=== PATIENT | male | born 1955 | race Hispanic/Latino ===

== ENCOUNTER 2023-01-08 11:48 | Inpatient (IN) | payer MEDICARE, OTHER ==
[2023-01-08] MEDS ORDERED: Dextrose 50% Abboject 50 ML SYRINGE ONE (11:54)
[2023-01-08] MEDS ORDERED: Insulin Regular 300 UNITS/3 ML VIAL ONE (11:54)
[2023-01-08] MEDS ORDERED: Sodium Bicarb 50 MEQ/50 ML Abboject 8.4% SYRINGE ONE (11:56)
[2023-01-08] MEDS ORDERED: Calcium Chloride 1 GM/10 ML Abboject SYRINGE ONE (11:56)
[2023-01-08 12:02] LABS: #Basophils 0.1 thou/uL (0.0-0.2); #Eosinphils 0.1 thou/uL (0.0-0.7); #Monocytes 0.3 thou/uL (0.11-0.59); #Neutrophils 8.8 thou/uL (1.40-6.50); %Basophils 0.4 % (0.0-1.0); %Eosinophils 0.9 % (0.0-10.0); %Lymphocytes 26.6 % (21.0-51.0); %Monocytes 2.3 % (0.0-10.0); %Neutrophils 65.4 % (42.0-75.0); Hematocrit 26.1 % (42.0-52.0); Hemoglobin 7.9 g/dL (14.0-18.0); Mean Corpuscular HGB CONC 30.3 g/dL (32.0-36.0); Mean Corpuscular Hemoglobin 28.6 pg (27.0-31.0); Mean Corpuscular Volume 94.6 fl (78.0-98.0); Mean Platelet Volume 10.7 fL (7.4-10.4); Platelet Count 277 10x3/uL (130-400); RBC Distribution Width 14.6 % (11.5-14.5); Red Blood Cell (RBC) Count 2.76 mill/uL (4.70-6.10); White Blood Cell (WBC) Count 13.4 10x3/uL (4.8-10.8)
[2023-01-08] MEDS ORDERED: fentaNYL 50 mcg/mL 1 mL Vial ONE (12:06)
[2023-01-08 12:20] LABS: Analyzer IN Cardio ER; Base Excess (BEa) -10.1 mEq/L (-2.0 to +3.0); CO2 Tension 30.2 mmHg (35.0-45.0); Calcium, Ionized (arterial) 1.23 mmol/L (1.12-1.30); Carboxyhemoglobin (COHb) 0.3 gm% (0.0-3.0); Hematocrit-ABG 23 % (42.0-52.0); Hemoglobin (Hb) 7.7 g/dL (14.0-18.0); O2 Tension (PaO2), arterial 462.7 mmHg (> 80.0); Potassium - ABG Lab 3.82 mmol/L (3.70-5.30); pH, Arterial 7.315 (7.35-7.45)
[2023-01-08 12:22] LABS: Puncture Site Yes
[2023-01-08] MEDS ORDERED: Fentanyl CADD 100 ML IV SCH (12:30)
[2023-01-08 12:34] LABS: Troponin I 0.024 ng/mL (< 0.028)
[2023-01-08 12:36] LABS: INR-International Normal Ratio 1.2; Prothrombin Time 15.8 sec (12.0-14.7)
[2023-01-08 12:37] LABS: PTT 34.5 sec (22.9-36.1)
[2023-01-08 12:40] LABS: Anion Gap 17 mmol/L (10-20); BUN (Urea Nitrogen) 48 mg/dL (8.4-25.7); Calc. Creatinine Clearance 0 mL/min (70-130); Carbon Dioxide 15 mmol/L (23-31); Chloride 113 mmol/L (98-107); Potassium 4.2 mmol/L (3.5-5.1); Sodium 141 mmol/L (136-145)
[2023-01-08 12:41] LABS: ALT (SGPT) 169 U/L (8-55); AST (SGOT) 198 U/L (5-34); Albumin 2.9 g/dL (3.4-4.8); Alkaline Phosphatase 80 U/L (40-110); Bilirubin, Total 0.3 mg/dL (0.2-1.2); Calcium 8.8 mg/dL (7.8-10.44); Estimated GFR 8; Globulin 3.5 g/dL (2.4-3.5); Glucose 162 mg/dL (80-115); Lipase 29 U/L (8-78); Protein, Total 6.4 g/dL (5.8-8.1)
[2023-01-08 12:46] LABS: Bacteria/HPF 1+ HPF (None Seen); Bilirubin Negative (Negative); Blood, Urine 2+ (Negative); CAUTI Indications for Culture Alt mental st,lethar; Clarity Hazy (Clear); Glucose, Urine (Dipstick) 150 mg/dL (Negative); Ketone, Urine Negative (Negative); Leukocyte Negative Leu/uL (Negative); Nitrite Negative (Negative); Protein, Urine (Dipstick) 300 mg/dL (Neg-Trace); Specific Gravity, Urine 1.012 (1.002-1.036); Squamous Epithelial 0-3 HPF (0-3); Urobilinogen Normal mg/dL (Less than 2); pH, Urine 6.5 (5.0-9.0)
[2023-01-08 12:47] LABS: Urine Culture Reflex No No
[2023-01-08 12:50] LABS: Amphetamine Not Detected (NotDetected); Barbiturates Screen Not Detected (NotDetected); Benzodiazepine Screen Not Detected (NotDetected); Cocaine Metabolite Screen Not Detected (NotDetected); Methadone Not Detected (NotDetected); Methamphetamine Not Detected (NotDetected); Opiate Screen Not Detected (NotDetected); Oxycodone Screen Not Detected (NotDetected); Phencyclidine (PCP) Not Detected (NotDetected); THC/Cannabinoid Screen Not Detected (NotDetected); Tricyclic Screen Not Detected (NotDetected)
[2023-01-08] MEDS ORDERED: Cefepime 2 GM VIAL ONE (13:16)
[2023-01-08 13:20] LABS: Acetaminophen Less than 10 mcg/mL (10.0-30.0); Alcohol Less than 10.0 mg/dL (Less than 10); Magnesium 2.2 mg/dL (1.6-2.6); Salicylate Less than 8.0 mg/dL (15.0-30.0)
[2023-01-08] MEDS ORDERED: Vancomycin 1 GM/200 ML (FROZEN) BAG ONE (13:36)
[2023-01-08 13:55] LABS: Digoxin Less than 0.15 ng/mL (0.8-2.0)
[2023-01-08] MEDS ORDERED: Senokot S 8.6-50 MG TAB PO PRN (15:20)
[2023-01-08] MEDS ORDERED: Ventilator Sedation Protocol 1 EACH FS SCH (15:20)
[2023-01-08] MEDS ORDERED: Ondansetron PF 4 MG/2 ML Vial IVP PRN (15:20)
[2023-01-08] MEDS ORDERED: Electrolyte Replacement Protocol 1 EACH IVPB ONE (15:20)
[2023-01-08] MEDS ORDERED: DISCONTINUE PREVIOUS NARCOTIC PAIN MEDICATIONS AND BENZODIAZEPINES FS SCH (15:30)
[2023-01-08] MEDS ORDERED: Fentanyl BOLUS 250 ML IVPB PRN (15:30)
[2023-01-08] MEDS ORDERED: Lorazepam 2 MG/ML VIAL SLOW IVP PRN (15:30)
[2023-01-08] MEDS ORDERED: Propofol BOLUS 1,000 MG/100 ML VIAL IV PRN (15:30)
[2023-01-08] MEDS ORDERED: Morphine 2 MG/ML VIAL SLOW IVP PRN (15:30)
[2023-01-08 16:12] LABS: #Monocytes 0.7 thou/uL (0.11-0.59); #Neutrophils 11.1 thou/uL (1.40-6.50); %Basophils 0.2 % (0.0-1.0); %Eosinophils 0.1 % (0.0-10.0); %Lymphocytes 5.1 % (21.0-51.0); %Monocytes 5.3 % (0.0-10.0); %Neutrophils 88.8 % (42.0-75.0); Hematocrit 21.5 % (42.0-52.0); Hemoglobin 6.6 g/dL (14.0-18.0); Mean Corpuscular HGB CONC 30.7 g/dL (32.0-36.0); Mean Corpuscular Hemoglobin 28.7 pg (27.0-31.0); Mean Corpuscular Volume 93.5 fl (78.0-98.0); Mean Platelet Volume 11.4 fL (7.4-10.4); Platelet Count 206 10x3/uL (130-400); RBC Distribution Width 14.6 % (11.5-14.5); White Blood Cell (WBC) Count 12.5 10x3/uL (4.8-10.8)
[2023-01-08] MEDS: Propofol 1,000 MG/100 ML VIAL IV PRN ×2 (16:35→21:06)
[2023-01-08 16:38] LABS: Albumin 2.6 g/dL (3.4-4.8); Anion Gap 13 mmol/L (10-20); BUN (Urea Nitrogen) 46 mg/dL (8.4-25.7); Calc. Creatinine Clearance 13 mL/min (70-130); Calcium 8.8 mg/dL (7.8-10.44); Carbon Dioxide 17 mmol/L (23-31); Chloride 115 mmol/L (98-107); Estimated GFR 9; Glucose 97 mg/dL (80-115); Phosphorus 5.2 mg/dL (2.3-4.7); Potassium 4.9 mmol/L (3.5-5.1); Sodium 140 mmol/L (136-145)
[2023-01-08 17:00] LABS: Troponin I 0.216 ng/mL (< 0.028)
[2023-01-08] MEDS: cefTRIAXone\\ROCEPHIN 2 GM in Sodium Chloride 0.9% 100 ML IVPB SCH (21:01)
[2023-01-08] MEDS: Famotidine/PF 20 mg/2ml Vial SLOW IVP SCH (21:06)
[2023-01-08] MEDS ORDERED: hydrALAZINE 20 MG/ML VIAL SLOW IVP SCH (22:45)
[2023-01-08 23:03] LABS: #Monocytes 0.5 thou/uL (0.11-0.59); #Neutrophils 11.1 thou/uL (1.40-6.50); %Basophils 0.2 % (0.0-1.0); %Eosinophils 0.1 % (0.0-10.0); %Monocytes 3.9 % (0.0-10.0); %Neutrophils 87.4 % (42.0-75.0); Hematocrit 24.6 % (42.0-52.0); Hemoglobin 7.9 g/dL (14.0-18.0); Mean Corpuscular HGB CONC 32.1 g/dL (32.0-36.0); Mean Corpuscular Hemoglobin 29.4 pg (27.0-31.0); Mean Corpuscular Volume 91.4 fl (78.0-98.0); Mean Platelet Volume 11.2 fL (7.4-10.4); Platelet Count 191 10x3/uL (130-400); RBC Distribution Width 14.6 % (11.5-14.5); Red Blood Cell (RBC) Count 2.69 mill/uL (4.70-6.10); White Blood Cell (WBC) Count 12.7 10x3/uL (4.8-10.8)
[2023-01-09 00:20] LABS: Troponin I 0.544 ng/mL (< 0.028)
[2023-01-09] MEDS: Propofol 1,000 MG/100 ML VIAL IV PRN (03:09)
[2023-01-09 04:01] LABS: #Eosinphils 0.1 thou/uL (0.0-0.7); #Monocytes 0.6 thou/uL (0.11-0.59); #Neutrophils 8.3 thou/uL (1.40-6.50); %Basophils 0.4 % (0.0-1.0); %Eosinophils 0.5 % (0.0-10.0); %Lymphocytes 16.4 % (21.0-51.0); %Monocytes 5.9 % (0.0-10.0); %Neutrophils 76.5 % (42.0-75.0); Hematocrit 23.6 % (42.0-52.0); Hemoglobin 7.8 g/dL (14.0-18.0); Mean Corpuscular HGB CONC 33.1 g/dL (32.0-36.0); Mean Corpuscular Hemoglobin 29.5 pg (27.0-31.0); Mean Corpuscular Volume 89.4 fl (78.0-98.0); Mean Platelet Volume 11.4 fL (7.4-10.4); Platelet Count 199 10x3/uL (130-400); RBC Distribution Width 14.6 % (11.5-14.5); Red Blood Cell (RBC) Count 2.64 mill/uL (4.70-6.10); White Blood Cell (WBC) Count 10.8 10x3/uL (4.8-10.8)
[2023-01-09 04:29] LABS: Albumin 2.4 g/dL (3.4-4.8); Anion Gap 14 mmol/L (10-20); BUN (Urea Nitrogen) 49 mg/dL (8.4-25.7); BUN/Creatinine Ratio 8.05; Calc. Creatinine Clearance 13 mL/min (70-130); Calcium 8.6 mg/dL (7.8-10.44); Carbon Dioxide 17 mmol/L (23-31); Chloride 116 mmol/L (98-107); Estimated GFR 9; Glucose 79 mg/dL (80-115); Iron 20 ug/dL (65-175); Phosphorus 4.4 mg/dL (2.3-4.7); Potassium 4.6 mmol/L (3.5-5.1); Sodium 142 mmol/L (136-145)
[2023-01-09 08:27] LABS: ALT (SGPT) 111 U/L (8-55); AST (SGOT) 104 U/L (5-34); Albumin 2.4 g/dL (3.4-4.8); Alkaline Phosphatase 64 U/L (40-110); Bilirubin, Direct 0.1 mg/dL (0.1-0.3); Bilirubin, Total 0.3 mg/dL (0.2-1.2); Protein, Total 5.3 g/dL (5.8-8.1)
[2023-01-09 08:48] LABS: INR-International Normal Ratio 1.2; Prothrombin Time 15.3 sec (12.0-14.7)
[2023-01-09 09:00] LABS: PTT 22.7 sec (22.9-36.1)
[2023-01-09 09:28] LABS: Creatinine, Urine 127.54 mg/dL (63-166)
[2023-01-09] MEDS ORDERED: Sodium Chloride 0.45% 1,000 ML IV SCH (09:30)
[2023-01-09] MEDS: Dexmedetomidine 400 MCG, Admixture Fee 1 EACH in Sodium Chloride 0.9% 96 ML IVPB SCH ×2 (10:07→22:13)
[2023-01-09] MEDS ORDERED: niCARdipine 25 MG in Sodium Chloride 0.9% 250 ML 250 ML IVPB SCH (11:45)
[2023-01-09] MEDS: Fentanyl CADD 100 ML IV SCH (11:52)
[2023-01-09] MEDS: cefTRIAXone\\ROCEPHIN 2 GM in Sodium Chloride 0.9% 100 ML IVPB SCH (21:50)
[2023-01-09] MEDS: Famotidine/PF 20 mg/2ml Vial SLOW IVP SCH (21:51)
[2023-01-09] MEDS: Heparin 5,000 UNITS/ML VIAL SC SCH (21:51)
[2023-01-10] MEDS: Fentanyl CADD 100 ML IV SCH (05:12)
[2023-01-10 07:01] LABS: #Monocytes 0.6 thou/uL (0.11-0.59); #Neutrophils 9.6 thou/uL (1.40-6.50); %Basophils 0.4 % (0.0-1.0); %Eosinophils 0.3 % (0.0-10.0); %Lymphocytes 6.7 % (21.0-51.0); %Monocytes 5.2 % (0.0-10.0); %Neutrophils 86.9 % (42.0-75.0); Hematocrit 27.4 % (42.0-52.0); Hemoglobin 8.7 g/dL (14.0-18.0); Mean Corpuscular HGB CONC 31.8 g/dL (32.0-36.0); Mean Corpuscular Hemoglobin 28.9 pg (27.0-31.0); Mean Platelet Volume 11.5 fL (7.4-10.4); Platelet Count 195 10x3/uL (130-400); RBC Distribution Width 14.8 % (11.5-14.5); Red Blood Cell (RBC) Count 3.01 mill/uL (4.70-6.10); White Blood Cell (WBC) Count 11.1 10x3/uL (4.8-10.8)
[2023-01-10 07:23] LABS: Anion Gap 18 mmol/L (10-20); BUN (Urea Nitrogen) 53 mg/dL (8.4-25.7); Calc. Creatinine Clearance 13 mL/min (70-130); Calcium 8.6 mg/dL (7.8-10.44); Carbon Dioxide 14 mmol/L (23-31); Chloride 115 mmol/L (98-107); Estimated GFR 9; Glucose 153 mg/dL (80-115); Potassium 4.8 mmol/L (3.5-5.1); Sodium 142 mmol/L (136-145)
[2023-01-10] MEDS: Heparin 5,000 UNITS/ML VIAL SC SCH ×2 (08:00→21:23)
[2023-01-10] MEDS: Dexmedetomidine 400 MCG, Admixture Fee 1 EACH in Sodium Chloride 0.9% 96 ML IVPB SCH (08:01)
[2023-01-10] MEDS ORDERED: Amlodipine 5 MG TAB PO SCH (14:00)
[2023-01-10] MEDS ORDERED: DC Sedation Protocol FS ONE (15:54)
[2023-01-10] MEDS: Famotidine/PF 20 mg/2ml Vial SLOW IVP SCH (21:10)
[2023-01-10] MEDS: cefTRIAXone\\ROCEPHIN 2 GM in Sodium Chloride 0.9% 100 ML IVPB SCH (21:10)
[2023-01-10] MEDS: Labetalol HCl 100 MG/20 ML VIAL SLOW IVP PRN (21:12)
[2023-01-10] MEDS: hydrALAZINE 20 MG/ML VIAL SLOW IVP PRN (22:08)
[2023-01-11] MEDS: Labetalol HCl 100 MG/20 ML VIAL SLOW IVP PRN (01:05)
[2023-01-11] MEDS ORDERED: Amlodipine 5 MG TAB PO SCH (09:00)
[2023-01-11] MEDS: Heparin 5,000 UNITS/ML VIAL SC SCH ×2 (09:07→21:16)
[2023-01-11 10:11] LABS: Anion Gap 17 mmol/L (10-20); BUN (Urea Nitrogen) 60 mg/dL (8.4-25.7); Calc. Creatinine Clearance 12 mL/min (70-130); Carbon Dioxide 16 mmol/L (23-31); Chloride 115 mmol/L (98-107); Potassium 4.6 mmol/L (3.5-5.1); Sodium 143 mmol/L (136-145)
[2023-01-11 10:12] LABS: Calcium 8.7 mg/dL (7.8-10.44); Estimated GFR 9; Glucose 130 mg/dL (80-115)
[2023-01-11] MEDS ORDERED: Metoprolol Tartrate 25 MG TAB PO SCH (12:28)
[2023-01-11] MEDS ORDERED: Dextrose 50% Abboject 50 ML SYRINGE SLOW IVP PRN (12:30)
[2023-01-11] MEDS ORDERED: HumaLOG 300 UNITS/3 ML VIAL SC PRN (12:30)
[2023-01-11] MEDS ORDERED: Dextrose 5% in Water 1,000 ML IV PRN (12:30)
[2023-01-11] MEDS: Acetaminophen 325 MG TAB PO PRN (15:32)
[2023-01-11] MEDS: hydrALAZINE 20 MG/ML VIAL SLOW IVP PRN (15:32)
[2023-01-11] MEDS ORDERED: NIFEdipine XL 60 MG ER.TAB PO SCH (15:45)
[2023-01-11 16:25] LABS: #Monocytes 0.9 thou/uL (0.11-0.59); #Neutrophils 11.7 thou/uL (1.40-6.50); %Basophils 0.2 % (0.0-1.0); %Eosinophils 0.1 % (0.0-10.0); %Lymphocytes 6.7 % (21.0-51.0); %Monocytes 6.7 % (0.0-10.0); %Neutrophils 85.6 % (42.0-75.0); Hematocrit 24.1 % (42.0-52.0); Hemoglobin 7.9 g/dL (14.0-18.0); Mean Corpuscular HGB CONC 32.8 g/dL (32.0-36.0); Mean Corpuscular Hemoglobin 29.4 pg (27.0-31.0); Mean Corpuscular Volume 89.6 fl (78.0-98.0); Mean Platelet Volume 11.6 fL (7.4-10.4); Platelet Count 229 10x3/uL (130-400); RBC Distribution Width 14.9 % (11.5-14.5); Red Blood Cell (RBC) Count 2.69 mill/uL (4.70-6.10); White Blood Cell (WBC) Count 13.7 10x3/uL (4.8-10.8)
[2023-01-11 16:48] LABS: ALT (SGPT) 54 U/L (8-55); AST (SGOT) 33 U/L (5-34); Albumin 2.7 g/dL (3.4-4.8); Alkaline Phosphatase 75 U/L (40-110); Anion Gap 18 mmol/L (10-20); BUN (Urea Nitrogen) 61 mg/dL (8.4-25.7); Bilirubin, Total 0.2 mg/dL (0.2-1.2); Calc. Creatinine Clearance 12 mL/min (70-130); Calcium 8.2 mg/dL (7.8-10.44); Carbon Dioxide 15 mmol/L (23-31); Chloride 114 mmol/L (98-107); Estimated GFR 9; Globulin 2.7 g/dL (2.4-3.5); Glucose 131 mg/dL (80-115); Magnesium 2.1 mg/dL (1.6-2.6); Potassium 4.5 mmol/L (3.5-5.1); Protein, Total 5.4 g/dL (5.8-8.1); Sodium 142 mmol/L (136-145)
[2023-01-11 16:51] LABS: Troponin I 0.163 ng/mL (< 0.028)
[2023-01-11] MEDS ORDERED: hydrALAZINE 20 MG/ML VIAL SLOW IVP PRN (16:56)
[2023-01-11] MEDS ORDERED: Aspirin 81 mg Enteric Coated Tablet PO SCH (17:00)
[2023-01-11 17:56] LABS: Lactic Acid 0.6 mmol/L (0.5-2.2)
[2023-01-11 20:56] LABS: Troponin I 0.169 ng/mL (< 0.028)
[2023-01-11] MEDS: cefTRIAXone\\ROCEPHIN 2 GM in Sodium Chloride 0.9% 100 ML IVPB SCH (21:15)
[2023-01-11] MEDS: Famotidine/PF 20 mg/2ml Vial SLOW IVP SCH (21:16)
[2023-01-11] MEDS: Metoprolol Tartrate 25 MG TAB PO SCH (22:52)
[2023-01-12 01:31] LABS: Troponin I 0.163 ng/mL (< 0.028)
[2023-01-12] MEDS: Labetalol HCl 100 MG/20 ML VIAL SLOW IVP PRN ×2 (04:35→23:38)
[2023-01-12 04:43] LABS: #Eosinphils 0.1 thou/uL (0.0-0.7); #Neutrophils 9.7 thou/uL (1.40-6.50); %Basophils 0.3 % (0.0-1.0); %Eosinophils 0.7 % (0.0-10.0); %Monocytes 8.1 % (0.0-10.0); Hematocrit 23.3 % (42.0-52.0); Hemoglobin 7.5 g/dL (14.0-18.0); Mean Corpuscular HGB CONC 32.2 g/dL (32.0-36.0); Mean Platelet Volume 11.9 fL (7.4-10.4); Platelet Count 237 10x3/uL (130-400); RBC Distribution Width 14.9 % (11.5-14.5); Red Blood Cell (RBC) Count 2.59 mill/uL (4.70-6.10); White Blood Cell (WBC) Count 11.9 10x3/uL (4.8-10.8)
[2023-01-12 04:51] LABS: Hemoglobin A1c 5.9 % (4.0-6.0)
[2023-01-12 05:09] LABS: Anion Gap 17 mmol/L (10-20); BUN (Urea Nitrogen) 63 mg/dL (8.4-25.7); Calc. Creatinine Clearance 12 mL/min (70-130); Calcium 8.6 mg/dL (7.8-10.44); Carbon Dioxide 16 mmol/L (23-31); Chloride 115 mmol/L (98-107); Cholesterol 155 mg/dl (< 200 Desired); Estimated GFR 8; Glucose 93 mg/dL (80-115); HDL Cholesterol 51 mg/dL (>60 Neg Risk); LDL Cholesterol, Calculated 86 mg/dL; Sodium 144 mmol/L (136-145); Triglycerides 91 mg/dL (Less than 150)
[2023-01-12] MEDS ORDERED: Iron, Sodium Ferric Gluconate 250 MG in Sodium Chloride 0.9% 250 ML 250 ML IVPB SCH (08:00)
[2023-01-12] MEDS: Atorvastatin Calcium 20 MG TAB PO SCH (08:53)
[2023-01-12] MEDS: Metoprolol Tartrate 25 MG TAB PO SCH (08:53)
[2023-01-12] MEDS: Aspirin 81 mg Enteric Coated Tablet PO SCH (08:54)
[2023-01-12] MEDS ORDERED: Lisinopril 5 MG TAB PO SCH (09:00)
[2023-01-12] MEDS ORDERED: NIFEdipine XL 30 MG ER.TAB PO SCH (09:00)
[2023-01-12] MEDS ORDERED: Insulin Glargine 30 UNITS/0.3 ML VIAL SC SCH ×3 (09:00)
[2023-01-12] MEDS ORDERED: Amlodipine 10 MG TAB PO SCH (09:00)
[2023-01-12] MEDS ORDERED: NIFEdipine XL 60 MG ER.TAB PO SCH (09:00)
[2023-01-12 10:01] LABS: ALT (SGPT) 46 U/L (8-55); AST (SGOT) 29 U/L (5-34); Albumin 2.7 g/dL (3.4-4.8); Alkaline Phosphatase 72 U/L (40-110); Bilirubin, Direct 0.1 mg/dL (0.1-0.3); Bilirubin, Total 0.3 mg/dL (0.2-1.2)
[2023-01-12] MEDS: NIFEdipine XL 60 MG ER.TAB PO SCH (10:51)
[2023-01-12] MEDS: Heparin 5,000 UNITS/ML VIAL SC SCH ×2 (11:26→21:44)
[2023-01-12] MEDS ORDERED: Lorazepam 2 MG/ML VIAL SLOW IVP SCH (15:30)
[2023-01-12] MEDS ORDERED: Epoetin (ESRD) 10,000 UNITS/ML VIAL SC SCH (18:00)
[2023-01-12] MEDS: Famotidine/PF 20 mg/2ml Vial SLOW IVP SCH (21:43)
[2023-01-12] MEDS: cefTRIAXone\\ROCEPHIN 2 GM in Sodium Chloride 0.9% 100 ML IVPB SCH (21:43)
[2023-01-13] MEDS: Metoprolol Tartrate 25 MG TAB PO SCH ×2 (01:09→12:09)
[2023-01-13] MEDS ORDERED: Dextrose 10% in Water 1,000 ML IV SCH (03:45)
[2023-01-13] MEDS ORDERED: Dextrose 5 %-0.45 % NaCl 1,000 ML IV SCH (03:45)
[2023-01-13] MEDS ORDERED: Lorazepam 2 MG/ML VIAL SLOW IVP SCH ×2 (03:45→12:00)
[2023-01-13 04:26] LABS: #Basophils 0.1 thou/uL (0.0-0.2); #Eosinphils 0.2 thou/uL (0.0-0.7); #Monocytes 1.3 thou/uL (0.11-0.59); #Neutrophils 10.5 thou/uL (1.40-6.50); %Basophils 0.5 % (0.0-1.0); %Eosinophils 1.4 % (0.0-10.0); %Lymphocytes 7.5 % (21.0-51.0); %Monocytes 9.9 % (0.0-10.0); Hematocrit 25.2 % (42.0-52.0); Mean Corpuscular HGB CONC 31.7 g/dL (32.0-36.0); Mean Corpuscular Hemoglobin 28.9 pg (27.0-31.0); Mean Platelet Volume 11.3 fL (7.4-10.4); Platelet Count 257 10x3/uL (130-400); RBC Distribution Width 14.9 % (11.5-14.5); Red Blood Cell (RBC) Count 2.77 mill/uL (4.70-6.10); White Blood Cell (WBC) Count 13.1 10x3/uL (4.8-10.8)
[2023-01-13 04:50] LABS: Anion Gap 17 mmol/L (10-20); BUN (Urea Nitrogen) 66 mg/dL (8.4-25.7); Calc. Creatinine Clearance 11 mL/min (70-130); Calcium 8.6 mg/dL (7.8-10.44); Carbon Dioxide 16 mmol/L (23-31); Chloride 115 mmol/L (98-107); Estimated GFR 8; Glucose 62 mg/dL (80-115); Magnesium 2.2 mg/dL (1.6-2.6); Potassium 3.9 mmol/L (3.5-5.1); Sodium 144 mmol/L (136-145)
[2023-01-13] MEDS ORDERED: Regadenoson 0.4 MG/5 ML SYRINGE ONE (08:46)
[2023-01-13] MEDS: Atorvastatin Calcium 20 MG TAB PO SCH (12:09)
[2023-01-13] MEDS: NIFEdipine XL 60 MG ER.TAB PO SCH (12:09)
[2023-01-13] MEDS: Aspirin 81 mg Enteric Coated Tablet PO SCH (12:09)
[2023-01-13] MEDS: Heparin 5,000 UNITS/ML VIAL SC SCH ×2 (12:14→21:44)
[2023-01-13] MEDS ORDERED: D5 1/2 NS 500 ML IV SCH (15:15)
[2023-01-13] MEDS: Dextrose 5 %-0.45 % NaCl 1,000 ML IV SCH (15:38)
[2023-01-14] MEDS ORDERED: Dextrose 10% in Water 1,000 ML IV SCH (01:30)
[2023-01-14] MEDS: Glucagon 1 MG/ML KIT IM PRN (01:47)
[2023-01-14] MEDS: cefTRIAXone\\ROCEPHIN 2 GM in Sodium Chloride 0.9% 100 ML IVPB SCH ×2 (04:56→22:18)
[2023-01-14] MEDS: Famotidine/PF 20 mg/2ml Vial SLOW IVP SCH ×2 (06:19→22:18)
[2023-01-14] MEDS: Metoprolol Tartrate 25 MG TAB PO SCH ×4 (06:20→22:23)
[2023-01-14 08:12] LABS: HBSAB Concentration Less than 8.00 mIU/mL; HBSAg Index 0.24 S/CO (0-0.99); Hep B Core Total Ab Non-Reactive (NonReactive); Hep B Surf AB Non-Reactive (NonReactive); Hep B Surf Ag Non-Reactive S/CO (NonReactive); Hep C IgG Ab Non-Reactive S/CO (NonReactive); Hep C Index 0.08 S/CO (0-0.79)
[2023-01-14 08:44] LABS: Anion Gap 16 mmol/L (10-20); BUN (Urea Nitrogen) 71 mg/dL (8.4-25.7); Calc. Creatinine Clearance 10 mL/min (70-130); Calcium 8.5 mg/dL (7.8-10.44); Carbon Dioxide 16 mmol/L (23-31); Chloride 111 mmol/L (98-107); Estimated GFR 8; Glucose 71 mg/dL (80-115); Potassium 4.3 mmol/L (3.5-5.1); Sodium 139 mmol/L (136-145)
[2023-01-14] MEDS: Atorvastatin Calcium 20 MG TAB PO SCH (08:58)
[2023-01-14] MEDS: Aspirin 81 mg Enteric Coated Tablet PO SCH (08:58)
[2023-01-14] MEDS: Heparin 5,000 UNITS/ML VIAL SC SCH ×2 (08:58→22:31)
[2023-01-14] MEDS: NIFEdipine XL 60 MG ER.TAB PO SCH (08:59)
[2023-01-14] MEDS: Dextrose 5 %-0.45 % NaCl 1,000 ML IV SCH (11:20)
[2023-01-15] MEDS ORDERED: Lorazepam 2 MG/ML VIAL SLOW IVP SCH (02:00)
[2023-01-15] MEDS: Aspirin 81 mg Enteric Coated Tablet PO SCH (09:52)
[2023-01-15] MEDS: NIFEdipine XL 60 MG ER.TAB PO SCH (09:52)
[2023-01-15] MEDS: Metoprolol Tartrate 25 MG TAB PO SCH ×2 (09:52→20:25)
[2023-01-15] MEDS: Atorvastatin Calcium 20 MG TAB PO SCH (09:52)
[2023-01-15] MEDS: Heparin 5,000 UNITS/ML VIAL SC SCH ×2 (10:04→20:23)
[2023-01-15] MEDS ORDERED: Dextrose 50% Abboject 50 ML SYRINGE ONE (11:38)
[2023-01-15] MEDS ORDERED: fentaNYL PF 100 MCG/2 ML SYRINGE ONE (12:45)
[2023-01-15] MEDS ORDERED: EPINEPHrine 1 MG/ML AMP ONE (12:48)
[2023-01-15] MEDS ORDERED: Bupivacaine PF 0.5% 30 ML VIAL ONE (12:48)
[2023-01-15] MEDS ORDERED: Heparin 10,000 UNITS/ 10 ML VIAL ONE (12:48)
[2023-01-15] MEDS ORDERED: Lidocaine 1% (PF) 30 ML VIAL ONE (12:48)
[2023-01-15] MEDS ORDERED: Ondansetron HCl/PF 4 MG/2 ML Vial IVP PRN (12:58)
[2023-01-15] MEDS ORDERED: PACU-Morphine 4MG/ML VIAL SLOW IVP PRN (12:58)
[2023-01-15] MEDS ORDERED: Promethazine HCl 25 MG/ML VIAL IM PRN (12:58)
[2023-01-15] MEDS ORDERED: PHENYLEPHRINE-NS 100 MCG/ML 10 ML SYRINGE ONE (13:22)
[2023-01-15] MEDS ORDERED: Ondansetron PF 4 MG/2 ML Vial ONE (13:22)
[2023-01-15] MEDS ORDERED: ePHEDrine Sulfate 50 MG/10 ML VIAL ONE (13:22)
[2023-01-15] MEDS: Dextrose 5 %-0.45 % NaCl 1,000 ML IV SCH (19:14)
[2023-01-15] MEDS: QUEtiapine 25 MG TAB PO SCH (20:25)
[2023-01-15] MEDS: Famotidine/PF 20 mg/2ml Vial SLOW IVP SCH (20:34)
[2023-01-16] MEDS ORDERED: Dextrose 5 %-0.45 % NaCl 1,000 ML IV SCH (02:00)
[2023-01-16 07:32] LABS: Bacteria/HPF None Seen HPF (None Seen); Bilirubin Negative (Negative); Blood, Urine 2+ (Negative); CAUTI Indications for Culture Alt mental st,lethar; Clarity Clear (Clear); Glucose, Urine (Dipstick) Normal (Negative); Ketone, Urine Negative (Negative); Leukocyte Negative Leu/uL (Negative); Nitrite Negative (Negative); Protein, Urine (Dipstick) 200 mg/dL (Neg-Trace); RBC/HPF 0-3 HPF (0-3); Specific Gravity, Urine 1.008 (1.002-1.036); Squamous Epithelial None Seen HPF (0-3); Urobilinogen Normal mg/dL (Less than 2); WBC/HPF 0-3 HPF (0-3)
[2023-01-16 07:34] LABS: Urine Culture Reflex No No
[2023-01-16] MEDS ORDERED: Heparin 10,000 UNITS/ 10 ML VIAL ONE (08:21)
[2023-01-16] MEDS: Glucagon 1 MG/ML KIT IM PRN (11:51)
[2023-01-16] MEDS: Heparin 5,000 UNITS/ML VIAL SC SCH ×2 (12:09→21:02)
[2023-01-16] MEDS: Atorvastatin Calcium 20 MG TAB PO SCH (12:09)
[2023-01-16] MEDS: Aspirin 81 mg Enteric Coated Tablet PO SCH (12:09)
[2023-01-16] MEDS: NIFEdipine XL 60 MG ER.TAB PO SCH (12:09)
[2023-01-16] MEDS: Metoprolol Tartrate 25 MG TAB PO SCH ×2 (12:09→21:02)
[2023-01-16] MEDS: QUEtiapine 25 MG TAB PO SCH ×2 (12:09→21:02)
[2023-01-16] MEDS: Dextrose 10% in Water 1,000 ML IV SCH (15:32)
[2023-01-17 04:50] LABS: #Eosinphils 0.3 thou/uL (0.0-0.7); #Monocytes 1.1 thou/uL (0.11-0.59); %Basophils 0.3 % (0.0-1.0); %Lymphocytes 13.2 % (21.0-51.0); %Monocytes 11.1 % (0.0-10.0); %Neutrophils 71.7 % (42.0-75.0); Hemoglobin 7.4 g/dL (14.0-18.0); Mean Corpuscular HGB CONC 32.2 g/dL (32.0-36.0); Mean Corpuscular Hemoglobin 29.2 pg (27.0-31.0); Mean Corpuscular Volume 90.9 fl (78.0-98.0); Platelet Count 349 10x3/uL (130-400); RBC Distribution Width 14.6 % (11.5-14.5); Red Blood Cell (RBC) Count 2.53 mill/uL (4.70-6.10); White Blood Cell (WBC) Count 9.7 10x3/uL (4.8-10.8)
[2023-01-17 05:13] LABS: Albumin 2.4 g/dL (3.4-4.8); Anion Gap 17 mmol/L (10-20); BUN (Urea Nitrogen) 28 mg/dL (8.4-25.7); BUN/Creatinine Ratio 6.29; Calc. Creatinine Clearance 17 mL/min (70-130); Calcium 8.1 mg/dL (7.8-10.44); Carbon Dioxide 22 mmol/L (23-31); Chloride 101 mmol/L (98-107); Estimated GFR 14; Glucose 90 mg/dL (80-115); Potassium 3.6 mmol/L (3.5-5.1); Sodium 136 mmol/L (136-145)
[2023-01-17] MEDS ORDERED: Epoetin (ESRD) 20,000 UNITS/ML MDV IVP SCH (09:30)
[2023-01-17] MEDS ORDERED: Heparin 10,000 UNITS/ 10 ML VIAL ONE (09:51)
[2023-01-17] MEDS: Metoprolol Tartrate 25 MG TAB PO SCH ×2 (13:34→21:32)
[2023-01-17] MEDS: Heparin 5,000 UNITS/ML VIAL SC SCH ×3 (13:34→21:32)
[2023-01-17] MEDS: NIFEdipine XL 60 MG ER.TAB PO SCH (13:34)
[2023-01-17] MEDS: Aspirin 81 mg Enteric Coated Tablet PO SCH (13:34)
[2023-01-17] MEDS: Atorvastatin Calcium 20 MG TAB PO SCH (13:34)
[2023-01-17] MEDS: QUEtiapine 25 MG TAB PO SCH ×2 (13:35→21:32)
[2023-01-17] MEDS: Dextrose 10% in Water 1,000 ML IV SCH (13:37)
[2023-01-17] MEDS: Epoetin (ESRD) 10,000 UNITS/ML VIAL IVP SCH (13:50)
[2023-01-17] MEDS: Famotidine/PF 20 mg/2ml Vial SLOW IVP SCH (21:33)
[2023-01-18 04:22] LABS: #Eosinphils 0.2 thou/uL (0.0-0.7); #Monocytes 1.2 thou/uL (0.11-0.59); #Neutrophils 7.4 thou/uL (1.40-6.50); %Basophils 0.4 % (0.0-1.0); %Eosinophils 2.1 % (0.0-10.0); %Lymphocytes 15.2 % (21.0-51.0); %Monocytes 11.7 % (0.0-10.0); %Neutrophils 69.7 % (42.0-75.0); Hematocrit 25.8 % (42.0-52.0); Hemoglobin 8.3 g/dL (14.0-18.0); Mean Corpuscular HGB CONC 32.2 g/dL (32.0-36.0); Mean Corpuscular Hemoglobin 29.2 pg (27.0-31.0); Mean Corpuscular Volume 90.8 fl (78.0-98.0); Mean Platelet Volume 10.5 fL (7.4-10.4); Platelet Count 410 10x3/uL (130-400); RBC Distribution Width 14.4 % (11.5-14.5); Red Blood Cell (RBC) Count 2.84 mill/uL (4.70-6.10); White Blood Cell (WBC) Count 10.6 10x3/uL (4.8-10.8)
[2023-01-18 04:53] LABS: Anion Gap 15 mmol/L (10-20); BUN (Urea Nitrogen) 12 mg/dL (8.4-25.7); Calc. Creatinine Clearance 22 mL/min (70-130); Calcium 8.2 mg/dL (7.8-10.44); Carbon Dioxide 24 mmol/L (23-31); Chloride 99 mmol/L (98-107); Estimated GFR 19; Glucose 139 mg/dL (80-115); Potassium 3.4 mmol/L (3.5-5.1); Sodium 135 mmol/L (136-145)
[2023-01-18] MEDS ORDERED: Metoprolol Tartrate 25 MG TAB PO SCH (08:05)
[2023-01-18] MEDS: Aspirin 81 mg Enteric Coated Tablet PO SCH (11:08)
[2023-01-18] MEDS: NIFEdipine XL 60 MG ER.TAB PO SCH (11:08)
[2023-01-18] MEDS: Metoprolol Tartrate 50 MG TAB PO SCH ×2 (11:09→20:41)
[2023-01-18] MEDS: Heparin 5,000 UNITS/ML VIAL SC SCH ×2 (11:10→20:41)
[2023-01-18] MEDS: Atorvastatin Calcium 20 MG TAB PO SCH (11:10)
[2023-01-18] MEDS: Dextrose 10% in Water 1,000 ML IV SCH (11:11)
[2023-01-18] MEDS: QUEtiapine 25 MG TAB PO SCH (13:44)
[2023-01-18] MEDS ORDERED: QUEtiapine 25 MG TAB PO SCH (21:00)
[2023-01-19] MEDS: Dextrose 10% in Water 1,000 ML IV SCH ×2 (02:22→22:37)
[2023-01-19 07:59] LABS: #Basophils 0.1 thou/uL (0.0-0.2); #Eosinphils 0.3 thou/uL (0.0-0.7); #Neutrophils 7.7 thou/uL (1.40-6.50); %Basophils 0.7 % (0.0-1.0); %Eosinophils 2.9 % (0.0-10.0); %Lymphocytes 13.6 % (21.0-51.0); %Monocytes 9.4 % (0.0-10.0); %Neutrophils 72.5 % (42.0-75.0); Hematocrit 25.7 % (42.0-52.0); Hemoglobin 8.2 g/dL (14.0-18.0); Mean Corpuscular HGB CONC 31.9 g/dL (32.0-36.0); Mean Corpuscular Volume 90.8 fl (78.0-98.0); Mean Platelet Volume 10.3 fL (7.4-10.4); Platelet Count 402 10x3/uL (130-400); RBC Distribution Width 14.3 % (11.5-14.5); Red Blood Cell (RBC) Count 2.83 mill/uL (4.70-6.10); White Blood Cell (WBC) Count 10.6 10x3/uL (4.8-10.8)
[2023-01-19 08:31] LABS: Anion Gap 16 mmol/L (10-20); BUN (Urea Nitrogen) 18 mg/dL (8.4-25.7); Calc. Creatinine Clearance 14 mL/min (70-130); Calcium 8.3 mg/dL (7.8-10.44); Carbon Dioxide 25 mmol/L (23-31); Chloride 97 mmol/L (98-107); Estimated GFR 11; Glucose 92 mg/dL (80-115); Potassium 3.7 mmol/L (3.5-5.1); Sodium 134 mmol/L (136-145)
[2023-01-19] MEDS: NIFEdipine XL 60 MG ER.TAB PO SCH (09:46)
[2023-01-19] MEDS: Aspirin 81 mg Enteric Coated Tablet PO SCH (09:46)
[2023-01-19] MEDS: Metoprolol Tartrate 50 MG TAB PO SCH ×2 (09:46→20:45)
[2023-01-19] MEDS: Potassium Chloride 20 MEQ TAB PO SCH (09:46)
[2023-01-19] MEDS: Heparin 5,000 UNITS/ML VIAL SC SCH ×2 (09:47→20:46)
[2023-01-19] MEDS: Atorvastatin Calcium 20 MG TAB PO SCH (09:47)
[2023-01-19] MEDS: QUEtiapine 25 MG TAB PO SCH (20:45)
[2023-01-19] MEDS: Famotidine/PF 20 mg/2ml Vial SLOW IVP SCH (20:45)
[2023-01-20 06:29] LABS: #Basophils 0.1 thou/uL (0.0-0.2); #Eosinphils 0.3 thou/uL (0.0-0.7); #Neutrophils 6.4 thou/uL (1.40-6.50); %Basophils 0.8 % (0.0-1.0); %Eosinophils 2.7 % (0.0-10.0); %Lymphocytes 16.7 % (21.0-51.0); %Monocytes 10.3 % (0.0-10.0); %Neutrophils 68.2 % (42.0-75.0); Hematocrit 25.2 % (42.0-52.0); Mean Corpuscular HGB CONC 31.7 g/dL (32.0-36.0); Mean Corpuscular Volume 91.3 fl (78.0-98.0); Mean Platelet Volume 10.4 fL (7.4-10.4); Platelet Count 413 10x3/uL (130-400); RBC Distribution Width 14.3 % (11.5-14.5); Red Blood Cell (RBC) Count 2.76 mill/uL (4.70-6.10); White Blood Cell (WBC) Count 9.3 10x3/uL (4.8-10.8)
[2023-01-20 07:03] LABS: Anion Gap 15 mmol/L (10-20); BUN (Urea Nitrogen) 25 mg/dL (8.4-25.7); Calc. Creatinine Clearance 10 mL/min (70-130); Calcium 8.2 mg/dL (7.8-10.44); Carbon Dioxide 24 mmol/L (23-31); Chloride 98 mmol/L (98-107); Estimated GFR 8; Glucose 89 mg/dL (80-115); Sodium 133 mmol/L (136-145)
[2023-01-20] MEDS: Heparin 5,000 UNITS/ML VIAL SC SCH ×2 (08:07→20:03)
[2023-01-20] MEDS: Potassium Chloride 20 MEQ TAB PO SCH (08:07)
[2023-01-20] MEDS: Aspirin 81 mg Enteric Coated Tablet PO SCH (08:07)
[2023-01-20] MEDS: Atorvastatin Calcium 20 MG TAB PO SCH (08:07)
[2023-01-20] MEDS: Metoprolol Tartrate 50 MG TAB PO SCH (08:08)
[2023-01-20] MEDS: NIFEdipine XL 60 MG ER.TAB PO SCH (08:08)
[2023-01-20] MEDS ORDERED: Heparin 10,000 UNITS/ 10 ML VIAL ONE (10:17)
[2023-01-20] MEDS: Epoetin (ESRD) 10,000 UNITS/ML VIAL IVP SCH (16:37)
[2023-01-21] MEDS: QUEtiapine 25 MG TAB PO SCH ×2 (01:04→20:31)
[2023-01-21] MEDS: Metoprolol Tartrate 50 MG TAB PO SCH ×3 (01:05→20:31)
[2023-01-21 07:19] LABS: #Basophils 0.1 thou/uL (0.0-0.2); #Eosinphils 0.2 thou/uL (0.0-0.7); #Monocytes 0.9 thou/uL (0.11-0.59); #Neutrophils 7.8 thou/uL (1.40-6.50); %Basophils 0.5 % (0.0-1.0); %Eosinophils 2.1 % (0.0-10.0); %Monocytes 8.6 % (0.0-10.0); %Neutrophils 73.5 % (42.0-75.0); Hematocrit 26.3 % (42.0-52.0); Hemoglobin 8.4 g/dL (14.0-18.0); Mean Corpuscular HGB CONC 31.9 g/dL (32.0-36.0); Mean Corpuscular Hemoglobin 29.1 pg (27.0-31.0); Mean Platelet Volume 10.1 fL (7.4-10.4); Platelet Count 451 10x3/uL (130-400); RBC Distribution Width 14.2 % (11.5-14.5); Red Blood Cell (RBC) Count 2.89 mill/uL (4.70-6.10); White Blood Cell (WBC) Count 10.6 10x3/uL (4.8-10.8)
[2023-01-21] MEDS: NIFEdipine XL 60 MG ER.TAB PO SCH (08:32)
[2023-01-21] MEDS: Heparin 5,000 UNITS/ML VIAL SC SCH ×2 (08:33→20:33)
[2023-01-21] MEDS: Atorvastatin Calcium 20 MG TAB PO SCH (08:33)
[2023-01-21] MEDS: Potassium Chloride 20 MEQ TAB PO SCH (08:33)
[2023-01-21] MEDS: Aspirin 81 mg Enteric Coated Tablet PO SCH (08:33)
[2023-01-21 09:52] LABS: BUN (Urea Nitrogen) 16 mg/dL (8.4-25.7); Calc. Creatinine Clearance 14 mL/min (70-130); Calcium 4.6 mg/dL (7.8-10.44); Carbon Dioxide 17 mmol/L (23-31); Chloride 98 mmol/L (98-107); Estimated GFR 12; Glucose 114 mg/dL (80-115); Potassium 5.4 mmol/L (3.5-5.1); Sodium 127 mmol/L (136-145)
[2023-01-21 09:55] LABS: Anion Gap 17 mmol/L (10-20)
[2023-01-21 10:43] LABS: Anion Gap 12 mmol/L (10-20); BUN (Urea Nitrogen) 17 mg/dL (8.4-25.7); Calc. Creatinine Clearance 14 mL/min (70-130); Carbon Dioxide 25 mmol/L (23-31); Chloride 95 mmol/L (98-107); Estimated GFR 12; Glucose 140 mg/dL (80-115); Potassium 4.5 mmol/L (3.5-5.1); Sodium 127 mmol/L (136-145)
[2023-01-21] MEDS: Famotidine/PF 20 mg/2ml Vial SLOW IVP SCH (20:34)
[2023-01-22 10:09] LABS: #Basophils 0.1 thou/uL (0.0-0.2); #Eosinphils 0.2 thou/uL (0.0-0.7); #Monocytes 0.9 thou/uL (0.11-0.59); #Neutrophils 8.3 thou/uL (1.40-6.50); %Basophils 0.6 % (0.0-1.0); %Eosinophils 1.6 % (0.0-10.0); %Lymphocytes 13.6 % (21.0-51.0); %Neutrophils 75.1 % (42.0-75.0); Hematocrit 25.1 % (42.0-52.0); Hemoglobin 7.9 g/dL (14.0-18.0); Mean Corpuscular HGB CONC 31.5 g/dL (32.0-36.0); Mean Corpuscular Hemoglobin 28.7 pg (27.0-31.0); Mean Corpuscular Volume 91.3 fl (78.0-98.0); Mean Platelet Volume 9.5 fL (7.4-10.4); Platelet Count 364 10x3/uL (130-400); RBC Distribution Width 14.5 % (11.5-14.5); Red Blood Cell (RBC) Count 2.75 mill/uL (4.70-6.10); White Blood Cell (WBC) Count 11.1 10x3/uL (4.8-10.8)
[2023-01-22 10:52] LABS: Anion Gap 12 mmol/L (10-20); BUN (Urea Nitrogen) 8 mg/dL (8.4-25.7); Calc. Creatinine Clearance 35 mL/min (70-130); Calcium 8.1 mg/dL (7.8-10.44); Carbon Dioxide 27 mmol/L (23-31); Chloride 98 mmol/L (98-107); Estimated GFR 37; Glucose 92 mg/dL (80-115); Potassium 3.1 mmol/L (3.5-5.1); Sodium 134 mmol/L (136-145)
[2023-01-22] MEDS ORDERED: Heparin 10,000 UNITS/ 10 ML VIAL ONE (10:58)
[2023-01-22] MEDS: Metoprolol Tartrate 50 MG TAB PO SCH ×2 (12:33→20:36)
[2023-01-22] MEDS: Heparin 5,000 UNITS/ML VIAL SC SCH ×2 (12:33→20:37)
[2023-01-22] MEDS: Atorvastatin Calcium 20 MG TAB PO SCH (13:12)
[2023-01-22] MEDS: NIFEdipine XL 60 MG ER.TAB PO SCH (13:12)
[2023-01-22] MEDS: Aspirin 81 mg Enteric Coated Tablet PO SCH (13:12)
[2023-01-22] MEDS: Epoetin (ESRD) 10,000 UNITS/ML VIAL IVP SCH (14:30)
[2023-01-22] MEDS ORDERED: traMADol HCl 50 MG TAB PO PRN (15:45)
[2023-01-22] MEDS ORDERED: guaiFENesin ER 600 MG TAB PO SCH (16:00)
[2023-01-22] MEDS: guaiFENesin ER 600 MG TAB PO SCH (20:36)
[2023-01-22] MEDS: QUEtiapine 25 MG TAB PO SCH (20:36)
[2023-01-23 07:20] LABS: #Basophils 0.1 thou/uL (0.0-0.2); #Eosinphils 0.2 thou/uL (0.0-0.7); #Monocytes 1.1 thou/uL (0.11-0.59); #Neutrophils 7.9 thou/uL (1.40-6.50); %Basophils 0.7 % (0.0-1.0); %Eosinophils 1.7 % (0.0-10.0); %Lymphocytes 18.8 % (21.0-51.0); %Monocytes 9.1 % (0.0-10.0); %Neutrophils 68.7 % (42.0-75.0); Hematocrit 24.8 % (42.0-52.0); Hemoglobin 7.8 g/dL (14.0-18.0); Mean Corpuscular HGB CONC 31.5 g/dL (32.0-36.0); Mean Corpuscular Volume 92.2 fl (78.0-98.0); Platelet Count 368 10x3/uL (130-400); RBC Distribution Width 14.4 % (11.5-14.5); Red Blood Cell (RBC) Count 2.69 mill/uL (4.70-6.10); White Blood Cell (WBC) Count 11.5 10x3/uL (4.8-10.8)
[2023-01-23 08:02] LABS: Anion Gap 13 mmol/L (10-20); BUN (Urea Nitrogen) 15 mg/dL (8.4-25.7); Calc. Creatinine Clearance 16 mL/min (70-130); Calcium 8.1 mg/dL (7.8-10.44); Carbon Dioxide 27 mmol/L (23-31); Chloride 96 mmol/L (98-107); Estimated GFR 14; Glucose 96 mg/dL (80-115); Potassium 4.2 mmol/L (3.5-5.1); Sodium 132 mmol/L (136-145)
[2023-01-23] MEDS: Aspirin 81 mg Enteric Coated Tablet PO SCH (09:12)
[2023-01-23] MEDS: Heparin 5,000 UNITS/ML VIAL SC SCH ×2 (09:12→21:05)
[2023-01-23] MEDS: Metoprolol Tartrate 50 MG TAB PO SCH ×2 (09:16→21:05)
[2023-01-23] MEDS: Atorvastatin Calcium 20 MG TAB PO SCH (09:17)
[2023-01-23] MEDS: Acetaminophen 325 MG TAB PO PRN ×2 (09:17→16:16)
[2023-01-23] MEDS: guaiFENesin ER 600 MG TAB PO SCH ×2 (09:17→21:05)
[2023-01-23] MEDS: NIFEdipine XL 60 MG ER.TAB PO SCH (09:17)
[2023-01-23] MEDS: QUEtiapine 25 MG TAB PO SCH (21:04)
[2023-01-23] MEDS: Famotidine 20 MG TAB PO SCH (21:05)
[2023-01-24 06:10] LABS: #Basophils 0.1 thou/uL (0.0-0.2); #Eosinphils 0.2 thou/uL (0.0-0.7); #Monocytes 1.2 thou/uL (0.11-0.59); %Basophils 0.7 % (0.0-1.0); %Eosinophils 1.6 % (0.0-10.0); %Lymphocytes 14.8 % (21.0-51.0); %Monocytes 9.8 % (0.0-10.0); %Neutrophils 72.5 % (42.0-75.0); Hematocrit 24.4 % (42.0-52.0); Hemoglobin 7.7 g/dL (14.0-18.0); Mean Corpuscular HGB CONC 31.6 g/dL (32.0-36.0); Mean Corpuscular Hemoglobin 29.2 pg (27.0-31.0); Mean Corpuscular Volume 92.4 fl (78.0-98.0); Platelet Count 368 10x3/uL (130-400); RBC Distribution Width 14.4 % (11.5-14.5); Red Blood Cell (RBC) Count 2.64 mill/uL (4.70-6.10); White Blood Cell (WBC) Count 12.4 10x3/uL (4.8-10.8)
[2023-01-24 06:36] LABS: Anion Gap 13 mmol/L (10-20); BUN (Urea Nitrogen) 25 mg/dL (8.4-25.7); Calc. Creatinine Clearance 12 mL/min (70-130); Calcium 8.4 mg/dL (7.8-10.44); Carbon Dioxide 28 mmol/L (23-31); Chloride 97 mmol/L (98-107); Estimated GFR 10; Glucose 154 mg/dL (80-115); Potassium 4.3 mmol/L (3.5-5.1); Sodium 134 mmol/L (136-145)
[2023-01-24] MEDS: Heparin 5,000 UNITS/ML VIAL SC SCH ×2 (12:38→20:01)
[2023-01-24] MEDS: guaiFENesin ER 600 MG TAB PO SCH ×2 (12:38→19:59)
[2023-01-24] MEDS: Metoprolol Tartrate 50 MG TAB PO SCH ×2 (12:38→19:59)
[2023-01-24] MEDS: Atorvastatin Calcium 20 MG TAB PO SCH (12:48)
[2023-01-24] MEDS: Aspirin 81 mg Enteric Coated Tablet PO SCH (12:49)
[2023-01-24] MEDS: EPOETIN ALFA-EPBX (ESRD) 10,000 UNITS/ML VIAL IVP SCH (12:49)
[2023-01-24] MEDS ORDERED: Heparin 10,000 UNITS/ 10 ML VIAL ONE (12:52)
[2023-01-24] MEDS: NIFEdipine XL 60 MG ER.TAB PO SCH (12:52)
[2023-01-24] MEDS ORDERED: Glucagon 1 MG/ML KIT IM PRN (17:07)
[2023-01-24] MEDS ORDERED: Dextrose 5% in Water 1,000 ML IV PRN (17:07)
[2023-01-24] MEDS ORDERED: Dextrose 50% Abboject 50 ML SYRINGE SLOW IVP PRN (17:07)
[2023-01-24] MEDS: HumaLOG 300 UNITS/3 ML VIAL SC PRN (17:18)
[2023-01-24] MEDS: QUEtiapine 25 MG TAB PO SCH (19:59)
[2023-01-24] MEDS: Acetaminophen 325 MG TAB PO PRN (20:00)
[2023-01-25] MEDS: Atorvastatin Calcium 20 MG TAB PO SCH (08:18)
[2023-01-25] MEDS: NIFEdipine XL 60 MG ER.TAB PO SCH (08:18)
[2023-01-25] MEDS: Aspirin 81 mg Enteric Coated Tablet PO SCH (08:18)
[2023-01-25] MEDS: guaiFENesin ER 600 MG TAB PO SCH ×2 (08:18→21:01)
[2023-01-25] MEDS: Heparin 5,000 UNITS/ML VIAL SC SCH ×2 (08:18→21:01)
[2023-01-25] MEDS: Metoprolol Tartrate 50 MG TAB PO SCH (08:18)
[2023-01-25] MEDS: Famotidine 20 MG TAB PO SCH (21:01)
[2023-01-25] MEDS: Metoprolol Tartrate 25 MG TAB PO SCH (21:01)
[2023-01-25] MEDS: QUEtiapine 25 MG TAB PO SCH (21:01)
[2023-01-26] MEDS: cloNIDine 0.1 MG TAB PO PRN ×2 (03:28→22:18)
[2023-01-26] MEDS: HumaLOG 300 UNITS/3 ML VIAL SC PRN (06:00)
[2023-01-26 07:15] LABS: Anion Gap 13 mmol/L (10-20); BUN (Urea Nitrogen) 36 mg/dL (8.4-25.7); Calc. Creatinine Clearance 11 mL/min (70-130); Calcium 8.6 mg/dL (7.8-10.44); Carbon Dioxide 26 mmol/L (23-31); Chloride 99 mmol/L (98-107); Estimated GFR 9; Glucose 223 mg/dL (80-115); Potassium 4.8 mmol/L (3.5-5.1); Sodium 133 mmol/L (136-145)
[2023-01-26] MEDS: Aspirin 81 mg Enteric Coated Tablet PO SCH (08:29)
[2023-01-26] MEDS: NIFEdipine XL 30 MG ER.TAB PO SCH (08:29)
[2023-01-26] MEDS: guaiFENesin ER 600 MG TAB PO SCH ×2 (08:29→22:18)
[2023-01-26] MEDS: Atorvastatin Calcium 20 MG TAB PO SCH (08:29)
[2023-01-26] MEDS: Heparin 5,000 UNITS/ML VIAL SC SCH ×2 (08:30→22:19)
[2023-01-26] MEDS: Metoprolol Tartrate 25 MG TAB PO SCH ×2 (08:30→22:18)
[2023-01-26] MEDS: QUEtiapine 25 MG TAB PO SCH (22:18)
[2023-01-27 05:27] LABS: #Basophils 0.1 thou/uL (0.0-0.2); #Eosinphils 0.2 thou/uL (0.0-0.7); #Neutrophils 6.6 thou/uL (1.40-6.50); %Basophils 1.1 % (0.0-1.0); %Eosinophils 2.3 % (0.0-10.0); %Lymphocytes 24.3 % (21.0-51.0); %Monocytes 9.2 % (0.0-10.0); %Neutrophils 62.4 % (42.0-75.0); Hematocrit 22.8 % (42.0-52.0); Hemoglobin 7.2 g/dL (14.0-18.0); Mean Corpuscular HGB CONC 31.6 g/dL (32.0-36.0); Mean Corpuscular Hemoglobin 29.8 pg (27.0-31.0); Mean Corpuscular Volume 94.2 fl (78.0-98.0); Mean Platelet Volume 10.2 fL (7.4-10.4); Platelet Count 370 10x3/uL (130-400); RBC Distribution Width 14.5 % (11.5-14.5); Red Blood Cell (RBC) Count 2.42 mill/uL (4.70-6.10); White Blood Cell (WBC) Count 10.6 10x3/uL (4.8-10.8)
[2023-01-27 05:46] LABS: Anion Gap 13 mmol/L (10-20); BUN (Urea Nitrogen) 47 mg/dL (8.4-25.7); Calc. Creatinine Clearance 10 mL/min (70-130); Calcium 8.5 mg/dL (7.8-10.44); Carbon Dioxide 24 mmol/L (23-31); Chloride 101 mmol/L (98-107); Estimated GFR 8; Glucose 158 mg/dL (80-115); Potassium 5.1 mmol/L (3.5-5.1); Sodium 133 mmol/L (136-145)
[2023-01-27] MEDS: Heparin 5,000 UNITS/ML VIAL SC SCH ×2 (07:42→20:29)
[2023-01-27] MEDS: guaiFENesin ER 600 MG TAB PO SCH ×2 (07:42→20:29)
[2023-01-27] MEDS: Metoprolol Tartrate 25 MG TAB PO SCH ×2 (07:42→20:28)
[2023-01-27] MEDS: Aspirin 81 mg Enteric Coated Tablet PO SCH (13:03)
[2023-01-27] MEDS: Atorvastatin Calcium 20 MG TAB PO SCH (13:03)
[2023-01-27] MEDS: NIFEdipine XL 30 MG ER.TAB PO SCH (13:03)
[2023-01-27] MEDS: Epoetin (ESRD) 10,000 UNITS/ML VIAL IVP SCH (13:24)
[2023-01-27] MEDS: EPOETIN ALFA-EPBX (ESRD) 10,000 UNITS/ML VIAL IVP SCH (13:34)
[2023-01-27] MEDS ORDERED: Epoetin (ESRD) 10,000 UNITS/ML VIAL SC SCH (13:45)
[2023-01-27] MEDS ORDERED: Heparin 10,000 UNITS/ 10 ML VIAL ONE (16:03)
[2023-01-27] MEDS: HumaLOG 300 UNITS/3 ML VIAL SC PRN (17:24)
[2023-01-27] MEDS: Famotidine 20 MG TAB PO SCH (20:28)
[2023-01-27] MEDS: QUEtiapine 25 MG TAB PO SCH (20:28)
[2023-01-28] MEDS: Metoprolol Tartrate 25 MG TAB PO SCH ×2 (08:17→19:54)
[2023-01-28] MEDS: NIFEdipine XL 30 MG ER.TAB PO SCH (08:17)
[2023-01-28] MEDS: guaiFENesin ER 600 MG TAB PO SCH ×2 (08:17→19:54)
[2023-01-28] MEDS: Heparin 5,000 UNITS/ML VIAL SC SCH ×2 (08:17→19:54)
[2023-01-28] MEDS: Atorvastatin Calcium 20 MG TAB PO SCH (08:17)
[2023-01-28] MEDS: Aspirin 81 mg Enteric Coated Tablet PO SCH (08:17)
[2023-01-28] MEDS: HumaLOG 300 UNITS/3 ML VIAL SC PRN (12:26)
[2023-01-28] MEDS: QUEtiapine 25 MG TAB PO SCH (19:54)
[2023-01-28] MEDS: Ferrous Sulfate 325 MG TAB PO SCH (21:26)
[2023-01-28] MEDS: cloNIDine 0.1 MG TAB PO PRN (21:27)
[2023-01-29 06:29] LABS: Hematocrit 24.4 % (42.0-52.0); Hemoglobin 7.6 g/dL (14.0-18.0)
[2023-01-29] MEDS ORDERED: Heparin 10,000 UNITS/ 10 ML VIAL ONE (08:33)
[2023-01-29] MEDS: Heparin 5,000 UNITS/ML VIAL SC SCH ×2 (09:00→19:45)
[2023-01-29] MEDS: guaiFENesin ER 600 MG TAB PO SCH ×2 (10:23→19:44)
[2023-01-29] MEDS ORDERED: IRON SUCROSE COMPLEX 100 MG/5 ML SLOW IVP SCH (11:45)
[2023-01-29] MEDS ORDERED: Iron, Sodium Ferric Gluconate 125 MG in Sodium Chloride 0.9% 100 ML IVPB SCH (12:00)
[2023-01-29 13:50] VITALS: BMI 22.2
[2023-01-29] MEDS: Ferrous Sulfate 325 MG TAB PO SCH (14:19)
[2023-01-29] MEDS: Metoprolol Tartrate 25 MG TAB PO SCH ×2 (14:19→19:43)
[2023-01-29] MEDS: NIFEdipine XL 30 MG ER.TAB PO SCH (14:19)
[2023-01-29] MEDS: Aspirin 81 mg Enteric Coated Tablet PO SCH (14:19)
[2023-01-29] MEDS: Atorvastatin Calcium 20 MG TAB PO SCH (14:20)
[2023-01-29] MEDS: HumaLOG 300 UNITS/3 ML VIAL SC PRN (16:15)
[2023-01-29] MEDS: Epoetin (ESRD) 10,000 UNITS/ML VIAL IVP SCH (16:16)
[2023-01-29] MEDS: QUEtiapine 25 MG TAB PO SCH (19:43)
[2023-01-29] MEDS: Famotidine 20 MG TAB PO SCH (19:43)
[2023-01-29] MEDS: Acetaminophen 325 MG TAB PO PRN (19:44)
[2023-01-30] MEDS: HumaLOG 300 UNITS/3 ML VIAL SC PRN ×3 (05:21→17:40)
[2023-01-30] MEDS: NIFEdipine XL 30 MG ER.TAB PO SCH (08:31)
[2023-01-30] MEDS: Atorvastatin Calcium 20 MG TAB PO SCH (08:31)
[2023-01-30] MEDS: Metoprolol Tartrate 25 MG TAB PO SCH (08:31)
[2023-01-30] MEDS: Heparin 5,000 UNITS/ML VIAL SC SCH (08:31)
[2023-01-30] MEDS: Aspirin 81 mg Enteric Coated Tablet PO SCH (08:31)
[2023-01-30] MEDS: guaiFENesin ER 600 MG TAB PO SCH ×2 (08:31→21:19)
[2023-01-31] MEDS: Acetaminophen 325 MG TAB PO PRN ×2 (00:47→20:24)
[2023-01-31] MEDS: QUEtiapine 25 MG TAB PO SCH ×2 (00:47→20:24)
[2023-01-31] MEDS: Metoprolol Tartrate 25 MG TAB PO SCH ×3 (00:47→20:24)
[2023-01-31] MEDS: Heparin 5,000 UNITS/ML VIAL SC SCH ×3 (00:49→20:25)
[2023-01-31] MEDS: HumaLOG 300 UNITS/3 ML VIAL SC PRN ×5 (00:49→20:25)
[2023-01-31] MEDS ORDERED: Heparin 10,000 UNITS/ 10 ML VIAL ONE (08:38)
[2023-01-31] MEDS ORDERED: Iron, Sodium Ferric Gluconate 125 MG in Sodium Chloride 0.9% 100 ML IVPB SCH (12:00)
[2023-01-31] MEDS: Atorvastatin Calcium 20 MG TAB PO SCH (12:34)
[2023-01-31] MEDS: guaiFENesin ER 600 MG TAB PO SCH ×2 (12:34→20:26)
[2023-01-31] MEDS: Aspirin 81 mg Enteric Coated Tablet PO SCH (12:34)
[2023-01-31] MEDS: NIFEdipine XL 30 MG ER.TAB PO SCH (12:34)
[2023-01-31] MEDS: Epoetin (ESRD) 10,000 UNITS/ML VIAL IVP SCH (15:30)
[2023-01-31] MEDS: Famotidine 20 MG TAB PO SCH (20:23)
[2023-02-01] MEDS: guaiFENesin ER 600 MG TAB PO SCH ×2 (08:57→21:11)
[2023-02-01] MEDS: NIFEdipine XL 30 MG ER.TAB PO SCH (08:57)
[2023-02-01] MEDS: Metoprolol Tartrate 25 MG TAB PO SCH ×2 (08:58→21:10)
[2023-02-01] MEDS: Heparin 5,000 UNITS/ML VIAL SC SCH ×2 (08:58→21:11)
[2023-02-01] MEDS: Atorvastatin Calcium 20 MG TAB PO SCH (08:58)
[2023-02-01] MEDS: Aspirin 81 mg Enteric Coated Tablet PO SCH (08:58)
[2023-02-01] MEDS: HumaLOG 300 UNITS/3 ML VIAL SC PRN ×2 (12:46→17:37)
[2023-02-01] MEDS: QUEtiapine 25 MG TAB PO SCH (21:10)
[2023-02-02 06:18] LABS: #Basophils 0.1 thou/uL (0.0-0.2); #Eosinphils 0.3 thou/uL (0.0-0.7); #Monocytes 0.7 thou/uL (0.11-0.59); #Neutrophils 5.5 thou/uL (1.40-6.50); %Basophils 1.1 % (0.0-1.0); %Eosinophils 3.3 % (0.0-10.0); %Lymphocytes 24.4 % (21.0-51.0); Hematocrit 25.6 % (42.0-52.0); Hemoglobin 7.9 g/dL (14.0-18.0); Mean Corpuscular HGB CONC 30.9 g/dL (32.0-36.0); Mean Corpuscular Hemoglobin 28.7 pg (27.0-31.0); Mean Corpuscular Volume 93.1 fl (78.0-98.0); Mean Platelet Volume 10.2 fL (7.4-10.4); Platelet Count 379 10x3/uL (130-400); RBC Distribution Width 15.4 % (11.5-14.5); Red Blood Cell (RBC) Count 2.75 mill/uL (4.70-6.10); White Blood Cell (WBC) Count 8.8 10x3/uL (4.8-10.8)
[2023-02-02 06:41] LABS: Anion Gap 14 mmol/L (10-20); BUN (Urea Nitrogen) 46 mg/dL (8.4-25.7); Calc. Creatinine Clearance 10 mL/min (70-130); Calcium 8.7 mg/dL (7.8-10.44); Carbon Dioxide 26 mmol/L (23-31); Chloride 102 mmol/L (98-107); Estimated GFR 8; Glucose 163 mg/dL (80-115); Potassium 4.7 mmol/L (3.5-5.1); Sodium 137 mmol/L (136-145)
[2023-02-02] MEDS: guaiFENesin ER 600 MG TAB PO SCH ×2 (09:06→20:58)
[2023-02-02] MEDS: Heparin 5,000 UNITS/ML VIAL SC SCH ×2 (09:06→21:03)
[2023-02-02] MEDS: Aspirin 81 mg Enteric Coated Tablet PO SCH (09:06)
[2023-02-02] MEDS: Atorvastatin Calcium 20 MG TAB PO SCH (09:07)
[2023-02-02] MEDS: NIFEdipine XL 30 MG ER.TAB PO SCH (09:07)
[2023-02-02] MEDS: Metoprolol Tartrate 25 MG TAB PO SCH ×2 (09:07→20:57)
[2023-02-02] MEDS: HumaLOG 300 UNITS/3 ML VIAL SC PRN ×2 (13:06→17:50)
[2023-02-02] MEDS: cloNIDine 0.1 MG TAB PO PRN (20:57)
[2023-02-02] MEDS: QUEtiapine 25 MG TAB PO SCH (20:58)
[2023-02-02] MEDS: Famotidine 20 MG TAB PO SCH (22:19)
[2023-02-03 05:49] LABS: #Basophils 0.1 thou/uL (0.0-0.2); #Eosinphils 0.3 thou/uL (0.0-0.7); #Monocytes 0.7 thou/uL (0.11-0.59); #Neutrophils 5.4 thou/uL (1.40-6.50); %Eosinophils 3.7 % (0.0-10.0); %Monocytes 7.7 % (0.0-10.0); %Neutrophils 63.3 % (42.0-75.0); Hematocrit 24.1 % (42.0-52.0); Hemoglobin 7.5 g/dL (14.0-18.0); Mean Corpuscular HGB CONC 31.1 g/dL (32.0-36.0); Mean Corpuscular Hemoglobin 29.6 pg (27.0-31.0); Mean Corpuscular Volume 95.3 fl (78.0-98.0); Mean Platelet Volume 10.4 fL (7.4-10.4); Platelet Count 393 10x3/uL (130-400); RBC Distribution Width 15.6 % (11.5-14.5); Red Blood Cell (RBC) Count 2.53 mill/uL (4.70-6.10); White Blood Cell (WBC) Count 8.6 10x3/uL (4.8-10.8)
[2023-02-03 06:22] LABS: Anion Gap 16 mmol/L (10-20); BUN (Urea Nitrogen) 57 mg/dL (8.4-25.7); Calc. Creatinine Clearance 9 mL/min (70-130); Calcium 8.4 mg/dL (7.8-10.44); Carbon Dioxide 22 mmol/L (23-31); Chloride 103 mmol/L (98-107); Estimated GFR 7; Glucose 187 mg/dL (80-115); Potassium 4.7 mmol/L (3.5-5.1); Sodium 136 mmol/L (136-145)
[2023-02-03] MEDS ORDERED: Heparin 10,000 UNITS/ 10 ML VIAL ONE (08:54)
[2023-02-03] MEDS ORDERED: EPOETIN ALFA-EPBX (ESRD) 10,000 UNITS/ML VIAL IVP SCH (13:00)
[2023-02-03 13:40] VITALS: BP 167/66; TEMP 96.6
== END 2023-02-03 15:16 | disposition home health service (06) | DRG 637 ==
LOC: ERS 11:48 → CCU 13:04 → 2NO 01-11 11:36 → T4-A 01-18 17:25
PROVIDERS: ADMIT Internal Medicine; ATTEND Internal Medicine
PROC: 5A1945Z Respiratory Ventilation, 24-96 Consecutive Hours (ICD-10-PCS; principal; 2023-01-08)
PROC: 0BH17EZ Insertion of Endotracheal Airway into Trachea, Via Natural or Artificial Opening (ICD-10-PCS; 2023-01-08)
PROC: 0D9670Z Drainage of Stomach with Drainage Device, Via Natural or Artificial Opening (ICD-10-PCS; 2023-01-08)
PROC: 4A033R1 Measurement of Arterial Saturation, Peripheral, Percutaneous Approach (ICD-10-PCS; 2023-01-08)
PROC: 30233N1 Transfusion of Nonautologous Red Blood Cells into Peripheral Vein, Percutaneous Approach (ICD-10-PCS; 2023-01-08)
PROC: 0JH63XZ Insertion of Tunneled Vascular Access Device into Chest Subcutaneous Tissue and Fascia, Percutaneous Approach (ICD-10-PCS; 2023-01-15)
PROC: 02HV33Z Insertion of Infusion Device into Superior Vena Cava, Percutaneous Approach (ICD-10-PCS; 2023-01-15)
PROC: B548ZZA Ultrasonography of Superior Vena Cava, Guidance (ICD-10-PCS; 2023-01-15)
PROC: 5A1D70Z Performance of Urinary Filtration, Intermittent, Less than 6 Hours Per Day (ICD-10-PCS; 2023-01-15)
PROC: 5A1D70Z Performance of Urinary Filtration, Intermittent, Less than 6 Hours Per Day (ICD-10-PCS; 2023-02-03)
DX: E11.649 Type 2 diabetes mellitus with hypoglycemia without coma (principal); G93.41 Metabolic encephalopathy; J96.01 Acute respiratory failure with hypoxia; I46.8 Cardiac arrest due to other underlying condition; E87.20 Acidosis, unspecified; I42.9 Cardiomyopathy, unspecified; I50.32 Chronic diastolic (congestive) heart failure; E87.1 Hypo-osmolality and hyponatremia; E11.65 Type 2 diabetes mellitus with hyperglycemia; N18.6 End stage renal disease; G93.1 Anoxic brain damage, not elsewhere classified; N17.9 Acute kidney failure, unspecified; I95.9 Hypotension, unspecified; D63.1 Anemia in chronic kidney disease; E88.09 Other disorders of plasma-protein metabolism, not elsewhere classified; R13.10 Dysphagia, unspecified; R41.0 Disorientation, unspecified; E83.51 Hypocalcemia; E87.5 Hyperkalemia; N17.0 Acute kidney failure with tubular necrosis; Z78.1 Physical restraint status; Z79.4 Long term (current) use of insulin; Z79.899 Other long term (current) drug therapy
CPT/HCPCS: 31500; 36415; 36416; 36430; 51702; 70450; 70496; 70498; 70551; 71045; 76770; 78452; 80048; 80053; 80061; 80069; 80076; 80162; 80306; 80307; 81001; 82570; 82728; 82805; 83036; 83540; 83605; 83690; 83735; 83880; 84100; 84156; 84443; 84484; 85014; 85018; 85025; 85610; 85730; 86704; 86850; 86900; 86901; 87040; 87086; 90935; 92950; 93005; 93010; 93017; 93306; 94002; 94003; 96365; 96366; 96368; 96375; 99292; A9500; C1752; G0257; J0171; J0360; J0692; J0696; J1611; J1644; J1650; J1815; J2001; J2060; J2405; J2704; J2785; J2916; J3010; J3370-JW; J3490; J7042; J7050; J7999; P9016; Q4081; Q5105; S0020; S0028

== ENCOUNTER 2023-02-04 22:11 | Emergency (ER) | payer MEDICARE, OTHER ==
[2023-02-04 23:49] LABS: Bacteria/HPF None Seen HPF (None Seen); Bilirubin Negative (Negative); Blood, Urine Negative (Negative); CAUTI Indications for Culture Alt mental st,lethar; Clarity Clear (Clear); Glucose, Urine (Dipstick) 150 mg/dL (Negative); Ketone, Urine Negative (Negative); Leukocyte Negative Leu/uL (Negative); Nitrite Negative (Negative); Protein, Urine (Dipstick) 300 mg/dL (Neg-Trace); RBC/HPF 0-3 HPF (0-3); Squamous Epithelial None Seen HPF (0-3); Urobilinogen Normal mg/dL (Less than 2); WBC/HPF 0-3 HPF (0-3)
[2023-02-04 23:50] LABS: Urine Culture Reflex No No
[2023-02-04 23:57] LABS: Amphetamine Not Detected (NotDetected); Barbiturates Screen Not Detected (NotDetected); Benzodiazepine Screen Not Detected (NotDetected); Cocaine Metabolite Screen Not Detected (NotDetected); Methadone Not Detected (NotDetected); Methamphetamine Not Detected (NotDetected); Opiate Screen Not Detected (NotDetected); Oxycodone Screen Not Detected (NotDetected); Phencyclidine (PCP) Not Detected (NotDetected); THC/Cannabinoid Screen Not Detected (NotDetected); Tricyclic Screen Not Detected (NotDetected)
[2023-02-05] MEDS ORDERED: Vancomycin 1.5 GRAM/300 ML BAG 1.5 GM in Premix Bag 1 BAG IVPB SCH (00:30)
[2023-02-05] MEDS ORDERED: Cefepime 2 GM VIAL ONE ×2 (00:35→00:36)
[2023-02-05 00:59] LABS: ALT (SGPT) 14 U/L (8-55); AST (SGOT) 14 U/L (5-34); Alkaline Phosphatase 129 U/L (40-110); Anion Gap 14 mmol/L (10-20); BUN (Urea Nitrogen) 42 mg/dL (8.4-25.7); Bilirubin, Total 0.2 mg/dL (0.2-1.2); Calc. Creatinine Clearance 0 mL/min (70-130); Calcium 8.8 mg/dL (7.8-10.44); Carbon Dioxide 25 mmol/L (23-31); Chloride 101 mmol/L (98-107); Estimated GFR 9; Globulin 3.3 g/dL (2.4-3.5); Glucose 186 mg/dL (80-115); Potassium 4.1 mmol/L (3.5-5.1); Protein, Total 6.3 g/dL (5.8-8.1); Sodium 136 mmol/L (136-145)
[2023-02-05 01:02] LABS: Troponin I 0.012 ng/mL (< 0.028)
[2023-02-05 01:03] LABS: Acetaminophen Less than 10 mcg/mL (10.0-30.0); Alcohol Less than 10.0 mg/dL (Less than 10); Salicylate Less than 8.0 mg/dL (15.0-30.0)
[2023-02-05 01:14] LABS: #Basophils 0.1 thou/uL (0.0-0.2); #Eosinphils 0.2 thou/uL (0.0-0.7); #Monocytes 0.7 thou/uL (0.11-0.59); #Neutrophils 5.4 thou/uL (1.40-6.50); %Basophils 1.1 % (0.0-1.0); %Eosinophils 2.9 % (0.0-10.0); %Lymphocytes 18.7 % (21.0-51.0); %Neutrophils 67.8 % (42.0-75.0); Hematocrit 28.3 % (42.0-52.0); Hemoglobin 8.9 g/dL (14.0-18.0); Mean Corpuscular HGB CONC 31.4 g/dL (32.0-36.0); Mean Corpuscular Hemoglobin 28.9 pg (27.0-31.0); Mean Corpuscular Volume 91.9 fl (78.0-98.0); Mean Platelet Volume 10.3 fL (7.4-10.4); Platelet Count 436 10x3/uL (130-400); RBC Distribution Width 15.4 % (11.5-14.5); Red Blood Cell (RBC) Count 3.08 mill/uL (4.70-6.10); White Blood Cell (WBC) Count 7.9 10x3/uL (4.8-10.8)
[2023-02-05] MEDS ORDERED: LevoFLOXacin 750 mg/D5W 150 ml Premix Bag ONE (01:39)
== END 2023-02-05 04:49 | disposition home or self-care (01) ==
LOC: ERS 22:11
DX: J18.9 Pneumonia, unspecified organism (principal); R41.82 Altered mental status, unspecified; N18.6 End stage renal disease; E78.5 Hyperlipidemia, unspecified; E11.22 Type 2 diabetes mellitus with diabetic chronic kidney disease; Z79.899 Other long term (current) drug therapy
CPT/HCPCS: 70450; 71045; 72125; 80306; 80307; 81001; 84484; 93005; J3370; 36415; 80053; 84443; 85025; 96365; 96366; 96367; J0692; J1956